=== PATIENT | male | born 1965 | race Caucasian/White ===

== ENCOUNTER → 2016-06-24 | Outpatient (CLI) | payer OTHER ==
[~2016-06-24] MED LIST: ANAPROX DS550 MG PO; ASPIRIN81 M1 PO; AUGMENTIN 875 M1 TAB PO; BACTRIM DS 8001 TAB PO; CEPHALEXIN500 M1 PO; CIPRO500 MG PO; CIPROFLOXACIN500 MG PO; CLEOCIN150 MG PO; DOXYCYCLINE HY100 M5 PO; ETODOLAC500 MG PO; FLOMAX0.4 MG PO; FUROSEMIDE40 MG PO; GLIPIZIDE1 POW PO; GLIPIZIDE10 M2 PO; GLIPIZIDE10 MG PO; HUMALOG100 U/ML SC; HYDROCHLOROTH12.5 MG; HYDROCODONE BIT1 T11 PO; HYDRODIURIL25 MG PO; LEVAQUIN750 MG PO; LEVOTHYROXIN0.025 M1 PO; LISINOPRIL2.5 MG PO; LISINOPRIL20 MG PO; METFOMIN HYDRO850 MG PO; METFORMIN1000 MG PO; METFORMIN500 MG PO; MOTRIN800 MG PO; NOVOLIN 70100 UNIT/1 SQ; NOVOLOG 70/30 M10 ML SC; OYSTER SHELL CA PO; PERCOCET 325 MG1 TA8 PO; POTASSIUM CHLO20 ME4 PO; ROBITUSSIN AC 10 MG/ PO; VICO75300 PO; VITAMIN B121000 MC1 PO; ZITHROMAX Z PA250 MG PO; ZYRTEC10 MG PO; Zestril,Prinivi40 MG PO
[2016-06-24 07:39] LABS: BASO # 0.1 10*3/uL (0.0-0.1); BASO % 0.7 % (0.0-1.0); EOS # 0.4 10*3/uL (0.0-0.4); EOS % 3.5 % (1.0-4.0); HEMATOCRIT 46.6 % (42.0-52.0); HEMOGLOBIN 14.6 g/dl (14.0-18.0); IG # 0.1 10*3/uL (0.0-0.1); LYMPH # 1.9 10*3/uL (1.3-4.4); LYMPH % 16.7 % (27.0-41.0); MEAN CELL VOLUME 84.7 fl (80.0-94.0); MEAN CORPUSCULAR HGB 26.5 pg (27.0-31.0); MEAN CORPUSCULAR HGB CONC 31.3 g/dl (33.0-37.0); MEAN PLATELET VOLUME 10.1 fl (9.6-12.3); MONO # 0.6 10*3/uL (0.1-1.0); MONO % 5.3 % (3.0-9.0); NEUT # 8.5 10*3/uL (2.3-7.9); NEUT % 73.1 % (47.0-73.0); PLATELET COUNT AUTOMATED 336 10*3/uL (130-400); RED CELL DISTRI WIDTH 14.3 % (0-14.5); WHITE BLOOD COUNT 11.6 10*3/uL (4.8-10.8)
[2016-06-24 08:09] LABS: HEMOGLOBIN A1c 6.2 % (4.8-5.6)
[2016-06-24 08:34] LABS: ALBUMIN 2.7 gm/dl (3.1-4.5); ALKALINE PHOSPHATASE 111 U/L (45-117); BILIRUBIN, TOTAL 0.4 mg/dl (0.2-1.0); BUN 34 mg/dl (7-24); CARBON DIOXIDE 27 mmol/L (21-32); CHLORIDE 108 mmol/L (98-107); CHOLESTEROL 215 mg/dL (<200); EST GLOM FILT AFRICAN AMERICAN > 60 ml/min; GLUCOSE 163 mg/dL (65-99); HDL CHOLESTEROL 38 mg/dl (40-60); IRON 50 ug/dL (65-175); IRON SATURATION 19 %; LDL CHOLESTEROL 149 mg/dL (9-159); MAGNESIUM 2.2 mg/dL (1.5-2.1); POTASSIUM 4.7 mmol/L (3.5-5.1); SGOT/AST 12 IU/L (3-35); SGPT/ALT 16 U/L (12-78); SODIUM 143 mmol/L (136-145); TOTAL PROTEIN 6.5 gm/dL (6.4-8.2); TRIGLYCERIDES 139 mg/dl (<150); UIBC 202 ug/dL (110-410); VLDL CHOLESTEROL 28 mg/dL (6-40)
[2016-06-24 09:35] LABS: VITAMIN D, 25-HYDROXY 10.7 ng/mL (30-100)
[2016-06-25 05:05] LABS: RBC, FOLATE HEMATOCRIT 43.8 % (37.5-51.0)
== END | disposition home or self-care (01) ==
LOC: LAB 06:54
PROVIDERS: Family Medicine
DX: Z00.00 Encounter for general adult medical examination without abnormal findings (principal); E11.9 Type 2 diabetes mellitus without complications; I10 Essential (primary) hypertension; G47.9 Sleep disorder, unspecified; G47.33 Obstructive sleep apnea (adult) (pediatric); E78.5 Hyperlipidemia, unspecified; E66.01 Morbid (severe) obesity due to excess calories; Z79.4 Long term (current) use of insulin

== ENCOUNTER 2016-08-23 17:13 | Emergency (ER) | payer OTHER ==
[~2016-08-23] VITALS: Ht 180.3 cm; Wt 213.2 kg
[~2016-08-23 17:13] MED LIST changes: -FLOMAX0.4 MG PO
[2016-08-23 18:23] LABS: BILIRUBIN 2+ (NEGATIVE); BLOOD 2+ (NEGATIVE); CLARITY SL CLOUDY (CLEAR); COLOR YELLOW (YELLOW); GLUCOSE NEGATIVE (NEGATIVE); KETONE NEGATIVE (NEGATIVE); LEUKO ESTERASE NEGATIVE (NEGATIVE); NITRITE NEGATIVE (NEGATIVE); PH 5.5 (5.0-9.0); PROTEIN 2+ (NEGATIVE); UROBILINOGEN 0.2 E.U./dl (0.2-1.0)
[2016-08-23] MEDS ORDERED: FLOMAX0.4 MG PO (18:28)
[2016-08-23] MEDS ORDERED: CIPRO500 MG PO (18:28)
[2016-08-23 18:30] LABS: BACTERIA 1+; RBC 21-30 rbc/hpf (0-2); URINE REFLEX COMMENT YES (NO)
== END 2016-08-23 18:29 | disposition home or self-care (01) ==
LOC: ED 17:13
PROVIDERS: Emergency Medicine Emergency Medical Services
DX: N39.0 Urinary tract infection, site not specified (principal); E11.9 Type 2 diabetes mellitus without complications; Z79.4 Long term (current) use of insulin

== ENCOUNTER → 2016-10-01 | Day surgery (SDC) | payer OTHER ==
[~2016-10-01] VITALS: Ht 180.3 cm; Wt 213.6 kg
[~2016-10-01] MED LIST changes: +FLOMAX0.4 MG PO
--- NOTE | ~2016-10-01 | PROC NOTE ---
[place], [place] PROCEDURE NOTE NAME: LAWANDA HUMPHREYS [facility] #: [id number] UNIT #: [id number] ROOM: DOCTOR: VICTORINO CORONADO MD BIRTHDATE: [birth year] DOS: 10/01/2016 PREOPERATIVE DIAGNOSIS: Scalp mass. POSTOPERATIVE DIAGNOSIS: Scalp mass. PROCEDURE: Excision of scalp mass (left parietal region). 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 ANESTHESIA: MAC with local (10 mL of 1% lidocaine with epinephrine). INDICATIONS: This is a 51-year-old gentleman with a history of left sided parietal scalp mass who is here for the above-mentioned procedure. The procedure and its complications were explained to the patient in detail. Complications that were discussed included but were not limited to bleeding, infection, hematoma formation and prolonged pain. He agreed to proceed. DESCRIPTION OF PROCEDURE: After identifying the patient, the patient was brought to the operating suite and laid in the supine position. After IV sedation was administered, the parts were painted and draped in the usual sterile fashion and the time-out procedure was called. The incision was marked and local anesthesia was infiltrated. At this point, the mass was excised in its entirety with the help of a knife and sent for histopathological diagnosis. Hemostasis was achieved with the help of electrocautery. Thereafter, scalp flaps were raised both superiorly and inferiorly in order to close this wound. This was achieved by taking deep 2 sutures with the help of 0 Prolene in a mattress fashion and then closing the skin with a running 2-0 nylon. Dressing was placed. The patient tolerated the procedure well. Blood loss was less than [address] Victorino Coronado, the attending surgeon, was present throughout the operating case. Victorino Coronado MD CM:PROCNOTE:PROCEDURE NOTE [id number] VICTORINO CORONADO MD
[2016-10-01 09:41] LABS: BASO # 0.1 10*3/uL (0.0-0.1); BASO % 0.5 % (0.0-1.0); EOS # 0.4 10*3/uL (0.0-0.4); EOS % 3.5 % (1.0-4.0); HEMOGLOBIN 14.7 g/dl (14.0-18.0); IG # 0.1 10*3/uL (0.0-0.1); LYMPH % 15.9 % (27.0-41.0); MEAN CELL VOLUME 84.2 fl (80.0-94.0); MEAN CORPUSCULAR HGB 26.9 pg (27.0-31.0); MONO # 0.6 10*3/uL (0.1-1.0); NEUT # 9.3 10*3/uL (2.3-7.9); NEUT % 74.5 % (47.0-73.0); PLATELET COUNT AUTOMATED 299 10*3/uL (130-400); RED BLOOD COUNT 5.46 10*6/uL (4.50-5.90); RED CELL DISTRI WIDTH 15.4 % (0-14.5); WHITE BLOOD COUNT 12.4 10*3/uL (4.8-10.8)
[2016-10-01 09:48] LABS: PROTHROMBIN TIME 10.3 SECONDS (9.0-12.4)
[2016-10-01 09:48] LABS: BILIRUBIN 3+ (NEGATIVE); BLOOD 1+ (NEGATIVE); CLARITY CLEAR (CLEAR); COLOR YELLOW (YELLOW); GLUCOSE NEGATIVE (NEGATIVE); KETONE NEGATIVE (NEGATIVE); LEUKO ESTERASE NEGATIVE (NEGATIVE); NITRITE NEGATIVE (NEGATIVE); PH 5.5 (5.0-9.0); PROTEIN 3+ (NEGATIVE); SPECIFIC GRAVITY >= 1.030 (1.005-1.030); UROBILINOGEN 0.2 E.U./dl (0.2-1.0)
[2016-10-01 09:54] LABS: BACTERIA TRACE
[2016-10-01 10:15] VITALS: BP 150/73
[2016-10-01 10:19] LABS: BUN 25 mg/dl (7-24); CARBON DIOXIDE 24 mmol/L (21-32); CHLORIDE 115 mmol/L (98-107); EST GLOM FILT AFRICAN AMERICAN > 60 ml/min; GLUCOSE 125 mg/dL (65-99); POTASSIUM 4.8 mmol/L (3.5-5.1); SODIUM 147 mmol/L (136-145)
[2016-10-01 11:07] VITALS: BP 126/68
[2016-10-01 11:25] VITALS: BP 124/62
[2016-10-01 11:40] VITALS: BP 142/71
== END | disposition home or self-care (01) ==
LOC: SDC 02:42
PROVIDERS: Surgery
DX: C44.41 Basal cell carcinoma of skin of scalp and neck (principal); E11.9 Type 2 diabetes mellitus without complications; I10 Essential (primary) hypertension; Z87.440 Personal history of urinary (tract) infections; Z83.3 Family history of diabetes mellitus; Z87.891 Personal history of nicotine dependence

== ENCOUNTER 2016-10-15 10:34 | Emergency (ER) | payer OTHER ==
[~2016-10-15] VITALS: Ht 180.3 cm
== END 2016-10-15 11:24 | disposition home or self-care (01) ==
LOC: ED 10:34
DX: Z48.02 Encounter for removal of sutures (principal); F12.10 Cannabis abuse, uncomplicated; F17.200 Nicotine dependence, unspecified, uncomplicated; E11.9 Type 2 diabetes mellitus without complications; M19.90 Unspecified osteoarthritis, unspecified site; Z79.899 Other long term (current) drug therapy

== ENCOUNTER → 2017-08-03 | Outpatient (CLI) | payer OTHER ==
[2017-08-03 09:11] LABS: HEMATOCRIT 47.8 % (42.0-52.0); HEMOGLOBIN 15.4 g/dl (14.0-18.0); MEAN CORPUSCULAR HGB 27.1 pg (27.0-31.0); MEAN CORPUSCULAR HGB CONC 32.2 g/dl (33.0-37.0); MEAN PLATELET VOLUME 9.8 fl (9.6-12.3); RED BLOOD COUNT 5.69 10*6/uL (4.50-5.90); RED CELL DISTRI WIDTH 14.6 % (0-14.5); WHITE BLOOD COUNT 12.8 10*3/uL (4.8-10.8)
[2017-08-03 09:37] LABS: ALKALINE PHOSPHATASE 87 U/L (45-117); BUN 22 mg/dl (7-24); CHLORIDE 105 mmol/L (98-107); CHOLESTEROL 181 mg/dL (<200); CREATININE 0.93 mg/dL (0.70-1.30); HDL CHOLESTEROL 42 mg/dl (40-60); LDL CHOLESTEROL 111 mg/dL (9-159); SGOT/AST 12 IU/L (3-35); SGPT/ALT 14 U/L (12-78); SODIUM 138 mmol/L (136-145); TOTAL PROTEIN 6.6 gm/dL (6.4-8.2); TRIGLYCERIDES 138 mg/dl (<150); VLDL CHOLESTEROL 28 mg/dL (6-40)
== END | disposition home or self-care (01) ==
LOC: LAB 08:47
PROVIDERS: Registered Nurse Flight
DX: I10 Essential (primary) hypertension (principal); E11.65 Type 2 diabetes mellitus with hyperglycemia; E78.2 Mixed hyperlipidemia; E55.9 Vitamin D deficiency, unspecified

== ENCOUNTER 2017-09-12 12:26 | Emergency (ER) | payer OTHER ==
[~2017-09-12] VITALS: Ht 180.3 cm; Wt 131.5 kg
[2017-09-12 13:10] LABS: BASO # 0.1 10*3/uL (0.0-0.1); BASO % 0.6 % (0.0-1.0); EOS # 0.2 10*3/uL (0.0-0.4); EOS % 1.9 % (1.0-4.0); HEMOGLOBIN 14.8 g/dl (14.0-18.0); LYMPH # 1.5 10*3/uL (1.3-4.4); LYMPH % 14.2 % (27.0-41.0); MEAN CELL VOLUME 84.9 fl (80.0-94.0); MEAN CORPUSCULAR HGB 27.3 pg (27.0-31.0); MEAN CORPUSCULAR HGB CONC 32.2 g/dl (33.0-37.0); MEAN PLATELET VOLUME 10.2 fl (9.6-12.3); MONO # 0.7 10*3/uL (0.1-1.0); MONO % 6.5 % (3.0-9.0); NEUT # 8.3 10*3/uL (2.3-7.9); NEUT % 76.3 % (47.0-73.0); PLATELET COUNT AUTOMATED 361 10*3/uL (130-400); RED BLOOD COUNT 5.42 10*6/uL (4.50-5.90); RED CELL DISTRI WIDTH 14.8 % (0-14.5); WHITE BLOOD COUNT 10.8 10*3/uL (4.8-10.8)
[2017-09-12 13:25] LABS: ALBUMIN 2.9 gm/dl (3.1-4.5); ALKALINE PHOSPHATASE 99 U/L (45-117); BUN 19 mg/dl (7-24); CHLORIDE 104 mmol/L (98-107); CREATININE 1.36 mg/dL (0.70-1.30); POTASSIUM 4.2 mmol/L (3.5-5.1); SGOT/AST 10 IU/L (3-35); SGPT/ALT 13 U/L (12-78); SODIUM 139 mmol/L (136-145); TOTAL PROTEIN 6.4 gm/dL (6.4-8.2)
[2017-09-12 13:27] LABS: TROPONIN I < 0.015 ng/ml (<0.045)
[2017-09-12] MEDS ORDERED: CYCLOBENZAPRINE5 M3 PO (14:13)
[2017-09-12] MEDS ORDERED: MEDROL DOSEPAK4 MG PO (14:13)
== END 2017-09-12 14:24 | disposition home or self-care (01) ==
LOC: ED 12:26
PROVIDERS: Physician Assistant
DX: M54.12 Radiculopathy, cervical region (principal); Z79.82 Long term (current) use of aspirin; Z79.4 Long term (current) use of insulin; Z79.899 Other long term (current) drug therapy

== ENCOUNTER → 2017-10-06 | Outpatient (CLI) | payer OTHER ==
[~2017-10-06] MED LIST changes: +CYCLOBENZAPRINE5 M3 PO; +MEDROL DOSEPAK4 MG PO
== END | disposition home or self-care (01) ==
LOC: RAD 15:47
DX: M25.562 Pain in left knee (principal); M25.561 Pain in right knee

== ENCOUNTER → 2018-04-11 | Outpatient (CLI) | payer OTHER ==
[2018-04-11 08:27] LABS: ALBUMIN 3.2 gm/dl (3.1-4.5); ALKALINE PHOSPHATASE 76 U/L (45-117); BUN 19 mg/dl (7-24); CHLORIDE 109 mmol/L (98-107); CHOLESTEROL 178 mg/dL (<200); CREATININE 0.91 mg/dL (0.70-1.30); HDL CHOLESTEROL 42 mg/dl (40-60); LDL CHOLESTEROL 109 mg/dL (9-159); POTASSIUM 4.3 mmol/L (3.5-5.1); SGOT/AST 16 IU/L (3-35); SGPT/ALT 14 U/L (12-78); SODIUM 141 mmol/L (136-145); TOTAL PROTEIN 6.9 gm/dL (6.4-8.2); TRIGLYCERIDES 135 mg/dl (<150); VLDL CHOLESTEROL 27 mg/dL (6-40)
[2018-04-11 08:32] LABS: HEMATOCRIT 45.5 % (42.0-52.0); HEMOGLOBIN 14.5 g/dl (14.0-18.0); MEAN CELL VOLUME 86.3 fl (80.0-94.0); MEAN CORPUSCULAR HGB 27.5 pg (27.0-31.0); MEAN CORPUSCULAR HGB CONC 31.9 g/dl (33.0-37.0); RED BLOOD COUNT 5.27 10*6/uL (4.50-5.90); RED CELL DISTRI WIDTH 14.3 % (0-14.5); WHITE BLOOD COUNT 7.1 10*3/uL (4.8-10.8)
== END | disposition home or self-care (01) ==
LOC: LAB 07:37
PROVIDERS: Registered Nurse Flight
DX: Z12.5 Encounter for screening for malignant neoplasm of prostate (principal); E11.9 Type 2 diabetes mellitus without complications; I10 Essential (primary) hypertension; E78.5 Hyperlipidemia, unspecified; E03.9 Hypothyroidism, unspecified; E55.9 Vitamin D deficiency, unspecified

== ENCOUNTER → 2018-07-27 | Outpatient (CLI) | payer OTHER ==
[2018-07-27 09:25] LABS: HEMATOCRIT 45.6 % (42.0-52.0); HEMOGLOBIN 14.8 g/dl (14.0-18.0); MEAN CORPUSCULAR HGB 28.6 pg (27.0-31.0); MEAN CORPUSCULAR HGB CONC 32.5 g/dl (33.0-37.0); MEAN PLATELET VOLUME 9.9 fl (9.6-12.3); RED BLOOD COUNT 5.18 10*6/uL (4.50-5.90); RED CELL DISTRI WIDTH 14.3 % (0-14.5); WHITE BLOOD COUNT 6.9 10*3/uL (4.8-10.8)
[2018-07-27 09:57] LABS: ALBUMIN 3.2 gm/dl (3.1-4.5); ALKALINE PHOSPHATASE 83 U/L (45-117); BUN 22 mg/dl (7-24); CHLORIDE 108 mmol/L (98-107); CHOLESTEROL 182 mg/dL (<200); CREATININE 1.01 mg/dL (0.70-1.30); HDL CHOLESTEROL 38 mg/dl (40-60); LDL CHOLESTEROL 110 mg/dL (9-159); POTASSIUM 4.5 mmol/L (3.5-5.1); SGOT/AST 11 IU/L (3-35); SGPT/ALT 19 U/L (12-78); SODIUM 142 mmol/L (136-145); TRIGLYCERIDES 171 mg/dl (<150); VLDL CHOLESTEROL 34 mg/dL (6-40)
== END | disposition home or self-care (01) ==
LOC: LAB 08:50
PROVIDERS: Registered Nurse Flight
DX: I10 Essential (primary) hypertension (principal); E11.9 Type 2 diabetes mellitus without complications; E78.5 Hyperlipidemia, unspecified; E03.9 Hypothyroidism, unspecified

== ENCOUNTER 2020-05-03 15:37 | Emergency (ER) | payer SELFPAY ==
[~2020-05-03] VITALS: Ht 180.3 cm; Wt 142.9 kg
[2020-05-03] MEDS ORDERED: ANTIFUNGAL113 GM T (17:42)
[2020-05-03] MEDS ORDERED: DIFLUCAN150 MG PO (17:42)
== END 2020-05-03 18:13 | disposition home or self-care (01) ==
LOC: ED 15:37
DX: N48.1 Balanitis (principal); Z79.899 Other long term (current) drug therapy; Z79.4 Long term (current) use of insulin

== ENCOUNTER 2021-06-14 16:31 | Emergency (ER) | payer SELFPAY ==
[~2021-06-14] VITALS: Ht 180.3 cm; Wt 158.8 kg
[~2021-06-14 16:31] MED LIST changes: +ANTIFUNGAL113 GM T; +DIFLUCAN150 MG PO
== END 2021-06-14 19:28 | disposition home or self-care (01) ==
LOC: ED 16:31
DX: R50.9 Fever, unspecified (principal); Z20.822 Contact with and (suspected) exposure to COVID-19; Z79.899 Other long term (current) drug therapy; Z79.82 Long term (current) use of aspirin

== ENCOUNTER → 2022-10-23 | Outpatient (CLI) | payer OTHER ==
[2022-10-23 07:45] LABS: BASO # 0.1 10*3/uL (0.0-0.1); BASO % 0.8 % (0.0-1.0); EOS # 0.3 10*3/uL (0.0-0.4); EOS % 3.3 % (1.0-4.0); HEMATOCRIT 48.2 % (42.0-52.0); LYMPH # 2.1 10*3/uL (1.3-4.4); LYMPH % 24.4 % (27.0-41.0); MEAN CELL VOLUME 87.3 fl (80.0-94.0); MEAN CORPUSCULAR HGB CONC 33.2 g/dl (33.0-37.0); MEAN PLATELET VOLUME 9.7 fl (9.6-12.3); MONO # 0.5 10*3/uL (0.1-1.0); MONO % 5.5 % (3.0-9.0); NEUT # 5.7 10*3/uL (2.3-7.9); NEUT % 65.4 % (47.0-73.0); PLATELET COUNT AUTOMATED 328 10*3/uL (130-400); RED BLOOD COUNT 5.52 10*6/uL (4.50-5.90); RED CELL DISTRI WIDTH 13.2 % (0-14.5); WHITE BLOOD COUNT 8.8 10*3/uL (4.8-10.8)
[2022-10-23 07:57] LABS: URINE CREATININE RANDOM 110.53 mg/dL
[2022-10-23 08:43] LABS: ALKALINE PHOSPHATASE 75 U/L (46-116); BUN 12 mg/dl (9-23); CHLORIDE 107 mmol/L (98-107); POTASSIUM 4.3 mmol/L (3.4-5.1); SGPT/ALT 14 U/L (10-49); TOTAL PROTEIN 6.6 gm/dL (6.0-8.0)
== END | disposition home or self-care (01) ==
LOC: LAB 07:15
PROVIDERS: ATTEND Family Medicine
DX: Z13.89 Encounter for screening for other disorder (principal); Z98.84 Bariatric surgery status; I10 Essential (primary) hypertension

== ENCOUNTER 2022-10-29 19:38 | Inpatient (IN) | payer OTHER ==
[~2022-10-29] VITALS: Ht 180.3 cm; Wt 158.8 kg
[2022-10-29 20:18] VITALS: BP 160/111
[2022-10-29 20:20] VITALS: BP 122/101
[2022-10-29 23:20] LABS: ALKALINE PHOSPHATASE 75 U/L (46-116); BUN 11 mg/dl (9-23); CHLORIDE 105 mmol/L (98-107); POTASSIUM 4.1 mmol/L (3.4-5.1); SGPT/ALT 9 U/L (10-49); TOTAL PROTEIN 6.4 gm/dL (6.0-8.0)
[2022-10-29 23:22] LABS: BASO # 0.1 10*3/uL (0.0-0.1); BASO % 0.7 % (0.0-1.0); EOS # 0.4 10*3/uL (0.0-0.4); HEMATOCRIT 43.7 % (42.0-52.0); LYMPH % 24.1 % (27.0-41.0); MEAN CELL VOLUME 83.9 fl (80.0-94.0); MEAN CORPUSCULAR HGB 29.2 pg (27.0-31.0); MEAN CORPUSCULAR HGB CONC 34.8 g/dl (33.0-37.0); MEAN PLATELET VOLUME 10.2 fl (9.6-12.3); MONO # 0.9 10*3/uL (0.1-1.0); MONO % 7.3 % (3.0-9.0); NEUT % 64.4 % (47.0-73.0); PLATELET COUNT AUTOMATED 243 10*3/uL (130-400); RED BLOOD COUNT 5.21 10*6/uL (4.50-5.90); WHITE BLOOD COUNT 12.5 10*3/uL (4.8-10.8)
[2022-10-30 01:40] VITALS: BP 143/68
[2022-10-30 05:55] VITALS: BP 143/85
[2022-10-30] MEDS ORDERED: XARE20MG PO (13:02)
[2022-10-30] MEDS ORDERED: XARELTO1 EACH PO (13:02)
[2022-10-30] MEDS ORDERED: JARDIANCE10 MG PO (13:25)
== END 2022-10-30 13:45 | disposition home or self-care (01) | DRG 134 ==
LOC: ED 19:38 → EDHOLD 10-30 05:43 → 4E 10-30 13:15
PROVIDERS: Emergency Medicine; ADMIT Family Medicine; ATTEND Family Medicine
DX: I26.99 Other pulmonary embolism without acute cor pulmonale (principal); I10 Essential (primary) hypertension; E87.1 Hypo-osmolality and hyponatremia; E11.65 Type 2 diabetes mellitus with hyperglycemia; E44.0 Moderate protein-calorie malnutrition; E66.01 Morbid (severe) obesity due to excess calories; M19.90 Unspecified osteoarthritis, unspecified site; Z79.899 Other long term (current) drug therapy

== ENCOUNTER → 2022-11-19 | Outpatient (CLI) | payer OTHER ==
[~2022-11-19] MED LIST changes: +JARDIANCE10 MG PO; +XARE20MG PO; +XARELTO1 EACH PO
== END | disposition home or self-care (01) ==
LOC: US 11-18 14:30
PROVIDERS: ATTEND Family Medicine
DX: I82.491 Acute embolism and thrombosis of other specified deep vein of right lower extremity (principal); I26.93 Single subsegmental thrombotic pulmonary embolism without acute cor pulmonale

== ENCOUNTER 2022-12-30 16:14 | Emergency (ER) | payer OTHER ==
[~2022-12-30] VITALS: Ht 180.3 cm; Wt 152.4 kg
[2022-12-30 18:07] LABS: ALKALINE PHOSPHATASE 81 U/L (46-116); BUN 12 mg/dl (9-23); CHLORIDE 103 mmol/L (98-107); POTASSIUM 4.1 mmol/L (3.4-5.1); SGPT/ALT 10 U/L (10-49); TOTAL PROTEIN 6.4 gm/dL (6.0-8.0)
== END 2022-12-30 22:35 | disposition short-term general hospital (02) ==
LOC: ED 16:14
PROVIDERS: Emergency Medicine
DX: N49.2 Inflammatory disorders of scrotum (principal); E11.9 Type 2 diabetes mellitus without complications; I10 Essential (primary) hypertension; E78.00 Pure hypercholesterolemia, unspecified; Z98.890 Other specified postprocedural states; F12.90 Cannabis use, unspecified, uncomplicated

== ENCOUNTER → 2023-01-12 | Outpatient (CLI) | payer OTHER | END | disposition home or self-care (01) | LOC: LAB 07:25 | PROVIDERS: ATTEND Urology | DX: D40.0 Neoplasm of uncertain behavior of prostate (principal); R53.83 Other fatigue ==

== ENCOUNTER → 2023-01-13 | Outpatient (CLI) | payer OTHER | END | disposition home or self-care (01) | LOC: US 01:13 | PROVIDERS: ATTEND Urology | DX: N13.30 Unspecified hydronephrosis (principal); N28.89 Other specified disorders of kidney and ureter ==

== ENCOUNTER → 2023-02-15 | Outpatient (CLI) | payer OTHER | END | disposition home or self-care (01) | LOC: CT 08:00 | PROVIDERS: ATTEND Urology | DX: N13.30 Unspecified hydronephrosis (principal); K76.0 Fatty (change of) liver, not elsewhere classified; K44.9 Diaphragmatic hernia without obstruction or gangrene; K80.20 Calculus of gallbladder without cholecystitis without obstruction; Z98.890 Other specified postprocedural states ==

== ENCOUNTER → 2023-07-23 | Outpatient (CLI) | payer OTHER | END | disposition home or self-care (01) | LOC: RAD 13:53 | PROVIDERS: ATTEND Family Medicine | DX: M25.462 Effusion, left knee (principal); M25.562 Pain in left knee ==

== ENCOUNTER 2023-08-07 10:30 | Emergency (ER) | payer OTHER ==
[~2023-08-07] VITALS: Ht 180.3 cm; Wt 156.9 kg
[2023-08-07 12:10] LABS: BASO # 0.1 10*3/uL (0.0-0.1); BASO % 0.5 % (0.0-1.0); EOS # 0.1 10*3/uL (0.0-0.4); EOS % 1.3 % (1.0-4.0); HEMATOCRIT 47.9 % (42.0-52.0); LYMPH # 1.8 10*3/uL (1.3-4.4); LYMPH % 17.6 % (27.0-41.0); MEAN CORPUSCULAR HGB 27.6 pg (27.0-31.0); MEAN CORPUSCULAR HGB CONC 32.2 g/dl (33.0-37.0); MEAN PLATELET VOLUME 9.9 fl (9.6-12.3); MONO # 0.6 10*3/uL (0.1-1.0); NEUT # 7.7 10*3/uL (2.3-7.9); NEUT % 74.3 % (47.0-73.0); PLATELET COUNT AUTOMATED 295 10*3/uL (130-400); RED BLOOD COUNT 5.57 10*6/uL (4.50-5.90); RED CELL DISTRI WIDTH 13.3 % (0-14.5); WHITE BLOOD COUNT 10.3 10*3/uL (4.8-10.8)
[2023-08-07 12:42] LABS: BILIRUBIN Negative (Negative); BLOOD Trace-Lysed (Negative); CLARITY Clear (Clear); COLOR Yellow (Yellow); GLUCOSE 3+ (Negative); KETONE Negative (Negative); LEUKO ESTERASE Trace (Negative); NITRITE Negative (Negative); SPECIFIC GRAVITY >= 1.030 (1.001-1.030); UROBILINOGEN 0.2 E.U./dl (0.0-1.0)
[2023-08-07 12:44] LABS: BUN 16 mg/dl (9-23); CHLORIDE 102 mmol/L (98-107); POTASSIUM 4.8 mmol/L (3.4-5.1)
[2023-08-07] MEDS ORDERED: INSULIN REGULAR, HUMAN 1 UNIT/0.01 ML SC ONE (12:50)
[2023-08-07 12:53] LABS: BACTERIA TRACE; WBC 16-20 wbc/hpf (0-5)
[2023-08-07 12:54] LABS: YEAST TRACE
[2023-08-07] MEDS ORDERED: Ciprofloxacin Hydrochloride 500 MG TAB PO ONE (13:05)
[2023-08-07] MEDS ORDERED: CIPRO500 MG PO (13:08)
== END 2023-08-07 13:33 | disposition home or self-care (01) ==
LOC: ED 10:30
PROVIDERS: Internal Medicine
DX: N39.0 Urinary tract infection, site not specified (principal); E11.65 Type 2 diabetes mellitus with hyperglycemia; Z79.899 Other long term (current) drug therapy; Z98.890 Other specified postprocedural states

== ENCOUNTER → 2024-04-10 | Outpatient (CLI) | payer OTHER ==
[2024-04-10 09:37] LABS: HEMATOCRIT 44.1 % (42.0-52.0); MEAN CELL VOLUME 85.3 fl (80.0-94.0); MEAN CORPUSCULAR HGB 27.9 pg (27.0-31.0); MEAN CORPUSCULAR HGB CONC 32.7 g/dl (33.0-37.0); MEAN PLATELET VOLUME 9.8 fl (9.6-12.3); RED BLOOD COUNT 5.17 10*6/uL (4.50-5.90); RED CELL DISTRI WIDTH 13.9 % (0-14.5); WHITE BLOOD COUNT 9.2 10*3/uL (4.8-10.8)
[2024-04-10 09:56] LABS: ALKALINE PHOSPHATASE 69 U/L (46-116); BUN 16 mg/dl (9-23); CHLORIDE 107 mmol/L (98-107); CHOLESTEROL 224 mg/dL (<200); CPK 34 U/L (34-171); LDL CHOLESTEROL 154 mg/dL (9-159); POTASSIUM 4.5 mmol/L (3.4-5.1); TOTAL PROTEIN 6.8 gm/dL (6.0-8.0); TRIGLYCERIDES 165 mg/dl (<150)
[2024-04-10 10:21] LABS: VITAMIN D, 25-HYDROXY 26.6 ng/mL (30-100)
[2024-04-10 10:43] LABS: SGPT/ALT < 7 U/L (5-49)
== END | disposition home or self-care (01) ==
LOC: LAB 08:46
PROVIDERS: ATTEND Family Medicine
DX: I10 Essential (primary) hypertension (principal); E11.9 Type 2 diabetes mellitus without complications; E55.9 Vitamin D deficiency, unspecified; E78.00 Pure hypercholesterolemia, unspecified; R60.0 Localized edema; Z79.899 Other long term (current) drug therapy

== ENCOUNTER → 2024-07-21 | Outpatient (CLI) | payer OTHER | END | disposition home or self-care (01) | LOC: RAD 12:06 | PROVIDERS: ATTEND Family Medicine | DX: M25.78 Osteophyte, vertebrae (principal); M54.9 Dorsalgia, unspecified; G89.29 Other chronic pain ==

== ENCOUNTER → 2024-08-23 | Outpatient (CLI) | payer OTHER ==
[2024-08-23 08:47] LABS: HEMATOCRIT 48.6 % (42.0-52.0); MEAN CELL VOLUME 86.5 fl (80.0-94.0); MEAN CORPUSCULAR HGB 27.4 pg (27.0-31.0); MEAN CORPUSCULAR HGB CONC 31.7 g/dl (33.0-37.0); MEAN PLATELET VOLUME 9.4 fl (9.6-12.3); RED BLOOD COUNT 5.62 10*6/uL (4.50-5.90); RED CELL DISTRI WIDTH 14.3 % (0-14.5); WHITE BLOOD COUNT 7.9 10*3/uL (4.8-10.8)
[2024-08-23 09:44] LABS: ALKALINE PHOSPHATASE 66 U/L (46-116); BUN 21 mg/dl (9-23); CHLORIDE 107 mmol/L (98-107); CHOLESTEROL 238 mg/dL (<200); CPK 25 U/L (34-171); LDL CHOLESTEROL 163 mg/dL (9-159); TOTAL PROTEIN 7.1 gm/dL (6.0-8.0); TRIGLYCERIDES 182 mg/dl (<150)
[2024-08-23 10:02] LABS: SGPT/ALT < 7 U/L (5-49)
== END | disposition home or self-care (01) ==
LOC: LAB 08:26
PROVIDERS: ATTEND Family Medicine
DX: I10 Essential (primary) hypertension (principal); E11.9 Type 2 diabetes mellitus without complications; E78.00 Pure hypercholesterolemia, unspecified

== ENCOUNTER → 2024-11-27 | Outpatient (CLI) | payer OTHER ==
[2024-11-27 12:00] LABS: HEMATOCRIT 47.2 % (42.0-52.0); MEAN CELL VOLUME 86.8 fl (80.0-94.0); MEAN CORPUSCULAR HGB 27.8 pg (27.0-31.0); MEAN PLATELET VOLUME 9.6 fl (9.6-12.3); RED BLOOD COUNT 5.44 10*6/uL (4.50-5.90); RED CELL DISTRI WIDTH 13.8 % (0-14.5); WHITE BLOOD COUNT 10.6 10*3/uL (4.8-10.8)
[2024-11-27 12:44] LABS: ALKALINE PHOSPHATASE 73 U/L (46-116); BUN 21 mg/dl (9-23); CHLORIDE 103 mmol/L (98-107); CHOLESTEROL 233 mg/dL (<200); CPK 59 U/L (34-171); LDL CHOLESTEROL 156 mg/dL (9-159); POTASSIUM 4.4 mmol/L (3.4-5.1); SGPT/ALT 10 U/L (5-49); TOTAL PROTEIN 7.1 gm/dL (6.0-8.0); TRIGLYCERIDES 205 mg/dl (<150)
== END | disposition home or self-care (01) ==
LOC: LAB 11:19
PROVIDERS: ATTEND Family Medicine
DX: I10 Essential (primary) hypertension (principal); E11.9 Type 2 diabetes mellitus without complications; R60.0 Localized edema

== ENCOUNTER → 2025-02-08 | Outpatient (CLI) | payer OTHER ==
[~2025-02-08] MED LIST changes: +ASPIRIN CHEWABL81 MG PO; +DILTIAZEM 24HR180 MG PO; -GLIPIZIDE10 MG PO; +LANTUS SOL100 UNIT/1 SC; +METOPROLOL TART50 M1 PO; +SIMVASTATIN10 MG PO
[2025-02-08 07:48] LABS: MEAN CELL VOLUME 86.1 fl (80.0-94.0); MEAN CORPUSCULAR HGB 27.6 pg (27.0-31.0); MEAN PLATELET VOLUME 9.5 fl (9.6-12.3); NUCLEATED RED BLOOD CELL 0.0 % (0.0-0.0); NUCLEATED RED BLOOD CELL 0.0 10*3/uL (0.0-0.0); PLATELET COUNT AUTOMATED 466.0 10*3/uL (130-400); RED CELL DISTRI WIDTH 14.2 % (0-14.5)
[2025-02-08 08:23] LABS: BUN 15 mg/dl (9-23); LDL CHOLESTEROL 146 mg/dL (9-159); SGPT/ALT 18 U/L (5-49)
[2025-02-08 09:47] LABS: VITAMIN D, 25-HYDROXY 26.8 ng/mL (30-100)
== END | disposition home or self-care (01) ==
LOC: LAB 07:17
PROVIDERS: ATTEND Family Medicine
DX: E78.00 Pure hypercholesterolemia, unspecified (principal); E11.9 Type 2 diabetes mellitus without complications; E55.9 Vitamin D deficiency, unspecified; R06.02 Shortness of breath

== ENCOUNTER → 2025-03-14 | Outpatient (CLI) | payer OTHER ==
[2025-03-14 10:37] LABS: MEAN CELL VOLUME 87.4 fl (80.0-94.0); MEAN CORPUSCULAR HGB 28.2 pg (27.0-31.0); MEAN PLATELET VOLUME 9.5 fl (9.6-12.3); NUCLEATED RED BLOOD CELL 0.0 % (0.0-0.0); NUCLEATED RED BLOOD CELL 0.0 10*3/uL (0.0-0.0); PLATELET COUNT AUTOMATED 404.0 10*3/uL (130-400); RED CELL DISTRI WIDTH 14.0 % (0-14.5)
[2025-03-14 11:00] LABS: BUN 14 mg/dl (9-23); CPK 25 U/L (34-171)
[2025-03-14 11:04] LABS: VITAMIN D, 25-HYDROXY 23.0 ng/mL (30-100)
[2025-03-14 11:09] LABS: SGPT/ALT < 7 U/L (5-49)
== END | disposition home or self-care (01) ==
LOC: LAB 10:15
PROVIDERS: ATTEND Family Medicine
DX: I10 Essential (primary) hypertension (principal); E11.9 Type 2 diabetes mellitus without complications; E78.00 Pure hypercholesterolemia, unspecified; E55.9 Vitamin D deficiency, unspecified

== ENCOUNTER → 2025-04-26 | Outpatient (CLI) | payer OTHER ==
[2025-04-26 09:59] LABS: MEAN CELL VOLUME 87.0 fl (80.0-94.0); MEAN CORPUSCULAR HGB 27.0 pg (27.0-31.0); MEAN PLATELET VOLUME 10.4 fl (9.6-12.3); NUCLEATED RED BLOOD CELL 0.0 % (0.0-0.0); NUCLEATED RED BLOOD CELL 0.0 10*3/uL (0.0-0.0); PLATELET COUNT AUTOMATED 405.0 10*3/uL (130-400); RED CELL DISTRI WIDTH 13.7 % (0-14.5)
== END | disposition home or self-care (01) ==
LOC: LAB 09:30
PROVIDERS: ATTEND Family Medicine
DX: E55.9 Vitamin D deficiency, unspecified (principal); D72.89 Other specified disorders of white blood cells

== ENCOUNTER → 2025-05-14 | Outpatient (CLI) | payer OTHER | END | disposition home or self-care (01) | LOC: LAB 10:37 → US 16:00 | PROVIDERS: ATTEND Family Medicine | DX: I65.23 Occlusion and stenosis of bilateral carotid arteries (principal); E11.9 Type 2 diabetes mellitus without complications ==